=== PATIENT | male | born 1980 | race African-American/Black ===

== ENCOUNTER 2021-02-10 10:55 | Emergency (ER) | payer OTHER ==
[2021-02-10 11:11] VITALS: BP 154/111; PULSE 105; TEMP 98.1; BMI 17.9
== END 2021-02-10 13:33 | disposition home or self-care (01) ==
LOC: JER 10:55 → JERFT 10:55
DX: G89.18 Other acute postprocedural pain (principal); M25.561 Pain in right knee; S82.101A Unspecified fracture of upper end of right tibia, initial encounter for closed fracture
CPT/HCPCS: 73562-TC-RT-FY; 73590-TC-RT-FY; 99284-25